=== PATIENT | female | born 1935 ===

== ENCOUNTER 2018-12-08 07:31 | Outpatient (CLI) | payer OTHER | END 2018-12-08 07:32 | disposition home or self-care (01) | LOC: C.LAB 07:31 | DX: I70.213 Atherosclerosis of native arteries of extremities with intermittent claudication, bilateral legs (principal); E78.2 Mixed hyperlipidemia ==

== ENCOUNTER 2018-12-22 09:31 | Outpatient (CLI) | payer OTHER | END 2018-12-22 09:32 | disposition home or self-care (01) | LOC: C.CTH 09:31 | DX: I70.213 Atherosclerosis of native arteries of extremities with intermittent claudication, bilateral legs (principal) ==